=== PATIENT | female | born 2000 | race African-American/Black ===

== ENCOUNTER 2022-04-06 17:52 | Emergency (ER) | payer MEDICAID ==
[~2022-04-06] VITALS: Ht 172.7 cm; Wt 68.0 kg
[2022-04-06 18:01] VITALS: BP 128/82
[2022-04-06 19:20] LABS: BASOPHILS % 0.3 % (0.0-2.0); EOSINOPHILS % 0.1 % (0.0-5.0); HEMATOCRIT. 36.6 % (36.0-48.0); HEMOGLOBIN. 11.9 g/dL (12.0-16.0); LYMPHOCYTES % 19.3 % (20.0-50.0); MEAN CORPUSCULAR HEMOGLOBIN 27.2 pg (28.0-32.0); MEAN CORPUSCULAR VOLUME 83.5 fL (81.0-99.0); MEAN PLATELET VOLUME 9.4 fl (7.4-10.4); MONOCYTES % 4.8 % (2.0-8.0); NEUTROPHILS % 75.5 % (40.0-76.0); PLATELET 200 x1000/uL (130-400); RED BLOOD CELL COUNT 4.39 mill/uL (4.2-5.4); RED CELL DISTRIBUTION WIDTH 17.6 % (11.6-14.6)
[2022-04-06 19:23] LABS: CLARITY URINE CLEAR (CLEAR); COLOR URINE YELLOW (YELLOW); KETONES URINE 3+ (NEGATIVE); LEUKOCYTE ESTERASE URINE TRACE (NEGATIVE); NITRITE URINE NEGATIVE (NEGATIVE); OCCULT BLOOD URINE NEGATIVE (NEGATIVE); PH URINE 6.5 (4.5-8.0); PROTEIN URINE 1+ (NEGATIVE); SPECIFIC GRAVITY URINE 1.019 (1.005-1.030)
[2022-04-06 19:25] LABS: CHLORIDE 109 mEq/L (98-107); HCG SCREEN POSITIVE
[2022-04-06] MEDS ORDERED: CEPH250C2 MT (21:34)
== END 2022-04-06 21:48 | disposition home or self-care (01) ==
LOC: ER 17:52
DX: O99.352 Diseases of the nervous system complicating pregnancy, second trimester (principal); R55 Syncope and collapse; Z3A.14 14 weeks gestation of pregnancy
CPT/HCPCS: 36415; 76801; 80053; 81003; 81025; 84703; 85025; 93005; 99285